=== PATIENT | female | born 1995 | race Caucasian/White ===

== ENCOUNTER 2019-06-30 15:54 | Inpatient (IN) ==
[2019-06-30 17:21] LABS: Urine Bilirubin Negative (NEGATIVE); Urine Blood Negative /ul (NEGATIVE); Urine Ketone Negative (NEGATIVE); Urine Nitrite Negative (NEGATIVE); Urine Protein Negative (NEGATIVE); Urine Urobilinogen Normal (NORMAL)
[2019-06-30 17:31] LABS: Urine Appearance Slightly Cloudy (CLEAR); Urine Bacteria 1+; Urine Color Yellow; Urine RBC 0-5 /hpf (0-5)
[2019-06-30] MEDS ORDERED: RINGER'S SOLUTION,LACTATED 1,000 ML IV PRN (19:02)
[2019-06-30] MEDS ORDERED: ONDANSETRON 4 MG TAB.RAPDIS PO PRN (19:02)
[2019-06-30] MEDS ORDERED: RINGER'S SOLUTION,LACTATED 1,000 ML IV ONE (19:02)
[2019-06-30] MEDS ORDERED: OXYTOCIN/DEXTROSE 5%-WATER 30 UNITS/500 ML BAG IV ONE (19:02)
[2019-06-30] MEDS ORDERED: BUPIVACAINE HCL/0.9 % NACL/PF 250 ML EP PRN (19:05)
[2019-06-30] MEDS ORDERED: ONDANSETRON HCL/PF 2 MG/ML VIAL IV PRN (19:05)
[2019-06-30] MEDS ORDERED: NALOXONE HCL 1 MG/1 ML SYRG IV PRN (19:05)
[2019-06-30] MEDS ORDERED: BUPIVACAINE HCL/PF 30 ML VIAL EP SCH (19:15)
--- NOTE | 2019-06-30 19:52 | ANES ---
Anesthesia Pre Procedure Eval Vitals/Labs: Last Vital Signs Temp 36.5 C 06/30/19 19:51 Pulse 78 06/30/19 19:51 Resp 20 06/30/19 19:51 BP 122/76 06/30/19 19:51 Pulse Ox 100 06/30/19 19:51 HOME MEDICATIONS polyethylene glycol 3350 17 gram/dose oral powder 17 g PO DAILY 03/10/19 [Last Taken Unknown] prenat.vits,ella,ibi-sndj-qxjgm 1 tab PO DAILY 03/10/19 [Last Taken 06/29/19 08:00] valacyclovir 1 gram tablet 1,000 mg PO DAILY #30 tab 06/16/19 [Last Taken 06/29/19 08:00] Allergies/Adverse Reactions: Allergies Allergy/AdvReac Type Severity Reaction Status Date / Time No Known Allergies Allergy Verified 06/28/19 13:59 - Planned Procedure Planned Procedure: LABOR EPIDURAL Medication List Reviewed:: Yes Allergies Verified: Yes Medical History (Last Reviewed 06/30/19 @ 19:52 by Carlos Cochran CRNA) Hyperemesis affecting , antepartum Onset Date: 11/26/18 Splenomegaly Onset Date: ~08/2014 Spontaneous Onset Date: Unknown Surgical History (Last Reviewed 06/30/19 @ 19:52 by Carlos Cochran CRNA) No significant past surgical history Onset Date: 03/10/19 Family History (Last Reviewed 06/30/19 @ 19:52 by Carlos Cochran CRNA) Mother Hx of migraines Hypertension Multiple sclerosis Father Unknown family medical history Grandmother Diabetes - Cardiovascular Tolerate Activity: Good Heart Sounds: S1 & S2, Regular - Anesthesia Assessment and Plan ASA Class: PS, II Anesthesia Type Plan: Epidural
--- NOTE | 2019-06-30 20:13 | ANES ---
Post Anesthesia Assessment - Vital Signs Vitals: Last Vital Signs Temp 36.5 C 06/30/19 19:51 Pulse 85 06/30/19 20:11 Resp 18 06/30/19 20:11 BP 119/61 06/30/19 20:11 Pulse Ox 100 06/30/19 20:11 Airway Patency: Normal - Mental Status Level Of Consciousness: Awake - N/V Assessment Nausea/Vomiting Presence: None Dehydration:: No
--- NOTE | 2019-06-30 20:13 | ANES ---
Anesthesia Procedure Note Procedure Note: ANESTHESIA PROCEDURE NOTE Date of Procedure: 06/30/2019. Time of procedure: 2054. Performed by: Carlos Cochran CRNA Director Of Acquisition Marketing: None. Preprocedure diagnosis: Active labor. Post procedure diagnosis: Same. Procedure: Insertion of labor epidural. Indications: The patient is a 24-year-old female in active labor requesting labor epidural for pain management. Findings: See below. Details of the procedure: The patient was placed in a sitting position. DuraPrep as well as Betadine swabs X3 was applied to the patient's back. Patient was then draped in a sterile fashion. Lidocaine 1% was infiltrated to the skin and subcutaneous tissues at the level of the L3-4 interspace. The epidural space was identified using a 18-gauge Tuohy needle with [id number] technique. Epidural catheter was inserted to a depth of 14 centimeters at skin. Negative test dose was elicited using 3 mL of 1.5% preservative-free lidocaine plus epinephrine 1 200,000. The epidural catheter was then taped and secured in place. A loading dose of 8 mL of 0.25% preservative-free bupivacaine was administered to the epidural catheter after negative aspiration for blood and CSF. EBL: Minimal. Fluids: N/A. Specimen: N/A. Post procedure condition: The patient tolerated the procedure well. No complications were noted. Thank you for this consultation. Carlos Cochran CRNA
[2019-06-30 20:34] LABS: Cocaine Ur Negative (NEGATIVE); Urine Barbiturate Negative (NEGATIVE); Urine Benzodiazepines Negative (NEGATIVE); Urine Opiates Negative (NEGATIVE); Urine PCP Negative (NEGATIVE); Urine THC Negative (NEGATIVE)
--- NOTE | 2019-06-30 23:41 | HP ---
Chief Complaint - Chief Complaint Date of Service: 06/30/19 Time of Service: 23:25 Chief Complaint: contractions History of Present Illness: 24 yo at 37 2/7 weeks presents to L&D complaining of contractions of increasing intensity and frequency since around 1400 today. This complicated by h/o GHTN and h/o spleenomegaly. FOB is HSV carrier but mother tested negative. She is on prophylatic tx during last month of . Rh positive Rubella immune GBS negative Medical History (Last Reviewed 06/30/19 @ 23:29 by Vaughn De La Rosa DO) Hyperemesis affecting , antepartum Onset Date: 11/26/18 Splenomegaly Onset Date: ~08/2014 Spontaneous Onset Date: Unknown Surgical History: Surgical History (Last Reviewed 06/30/19 @ 23:29 by Vaughn De La Rosa DO) No significant past surgical history Onset Date: 03/10/19 Family History: Family History (Last Reviewed 06/30/19 @ 23:29 by Vaughn De La Rosa DO) Mother Hx of migraines Hypertension Multiple sclerosis Father Unknown family medical history Grandmother Diabetes Social History: (Last Reviewed 06/30/19 @ 23:29 by Vaughn De La Rosa DO) Social History: adopted: No Marital status: Single household members: significant other, children number of children: 1 current occupational status: employed, unemployed Highest education level completed: high school graduate Sexually Active: Yes Service: No Tobacco: Smoking Status: Never smoker Alcohol: alcohol intake: never Substance Use: substance use type: does not use Dietary Habits: caffeine: Yes Review Of Systems (GEN) - Review of Systems Generalized/Overall Review: Present: No Symptoms Reported EENTM: Present: No Symptoms Reported Respiratory: Present: No Symptoms Reported Cardiac: Present: No Symptoms Reported Abdominal: Present: Other - contractions Genitourinary: Present: No Symptoms Reported Musculoskeletal: Present: No Symptoms Reported Neurological: Present: No Symptoms Reported Skin: Present: No Symptoms Reported Endocrine: Present: No Symptoms Reported Immunizations: IMMUNIZATION HX Immunizations Up to Date Yes History of Influenza Vaccine Yes Hx Pneumococcal Vaccination No Allergies/Adverse Reactions: Allergies Allergy/AdvReac Type Severity Reaction Status Date / Time No Known Allergies Allergy Verified 06/30/19 22:14 Home Medications: HOME MEDICATIONS polyethylene glycol 3350 17 gram/dose oral powder 17 g PO DAILY 09/19/19 [Last Taken Unknown] valacyclovir 1 gram tablet 1,000 mg PO DAILY #30 tab 06/16/19 [Last Taken 06/29/19 08:00] Vits96/Iron Fum/Folic [ S] 1 tab PO DAILY 06/30/19 [Last Taken 06/29/19] Exam - Exam Vital Signs: Vital Signs - Last Taken Temp 36.5 C 06/30/19 19:51 Pulse 85 06/30/19 20:11 Resp 18 06/30/19 20:11 BP 119/61 06/30/19 20:11 Pulse Ox 100 06/30/19 20:11 Constitutional: Present: Alert, Oriented x3, Cooperative, No distress ENT Exam: Present: hearing grossly normal Neck: Present: non-tender, trachea midline. Absent: thyromegaly Breasts: Present: Exam deferred Respiratory: Present: lungs clear, no respiratory distress Cardiovascular/Chest: Present: regular rate, rhythm Abdomen: Present: soft, nontender, no rebound tenderness, other - gravid /Rectal: Present: Other - cervix 5/60/-2 per nurse on admission Extremity: Present: no pedal edema, no calf tenderness Skin Exam: Present: normal color, warm/dry, no cyanosis Neurologic: Present: alert, normal mood/affect, oriented x 3 Appearance: Present: appropriate appearance, appropriate insight Eye contact: Present: cooperative, good eye contact Thoughts: Present: normal thought pattern Diagnostic Studies: Abnormal Lab Results 06/30/19 Range/Units 17:16 Ur Leukocyte Esterase 100 H (NEGATIVE) /ul Urine WBC 10-25 H (0-5) /hpf Ur Epithelial Cells >25 H (0-5) /hpf Urine Bacteria 1+ H (NONE) Laboratory Results Urine Color Yellow 06/30/19 17:16 Urine Appearance Slightly cloudy (CLEAR) 06/30/19 17:16 Urine pH 7.0 pH (5.0-7.0) 06/30/19 17:16 Ur Specific [place] 1.010 SP.GR. (1.005-1.010) 06/30/19 17:16 Urine Protein Negative mg/dL (NEGATIVE) 06/30/19 17:16 Urine Glucose (UA) Negative mg/dL (NEGATIVE) 06/30/19 17:16 Urine Ketones Negative mg/dL (NEGATIVE) 06/30/19 17:16 Urine Blood Negative /ul (NEGATIVE) 06/30/19 17:16 Urine Nitrate Negative (NEGATIVE) 06/30/19 17:16 Urine Bilirubin Negative mg/dl (NEGATIVE) 06/30/19 17:16 Urine Urobilinogen Normal EU/dl (NORMAL) 06/30/19 17:16 Ur Leukocyte Esterase 100 /ul (NEGATIVE) H 06/30/19 17:16 Urine RBC 0-5 /hpf (0-5) 06/30/19 17:16 Urine WBC 10-25 /hpf (0-5) H 06/30/19 17:16 Ur Epithelial Cells >25 /hpf (0-5) H 06/30/19 17:16 Urine Bacteria 1+ (NONE) H 06/30/19 17:16 Urine Opiates Screen Negative (NEGATIVE) 06/30/19 Unknown Barbiturate Screen Negative (NEGATIVE) 06/30/19 Unknown Ur Phencyclidine Scrn Negative (NEGATIVE) 06/30/19 Unknown Urine Amphetamine Negative (NEGATIVE) 06/30/19 Unknown U Benzodiazepines Scrn Negative (NEGATIVE) 06/30/19 Unknown Urine Cocaine Screen Negative (NEGATIVE) 06/30/19 Unknown Urine Marijuana (THC) Negative (NEGATIVE) 06/30/19 Unknown Assessment/Plan - Assessment/Plan (1) Labor established Assessment: Admit for routine management of labor. Epidural PRN. Pitocin PRN. Problem: Acute Non Stress Test - Status NST: 06/30/19 Weeks Gestation: 37 2/7 Reason for NST: threatened labor Monitor Mode: External Acceleration: Present Decelerations: None Variability: Moderate 6-25 bpm Activity: reactive Reactive: 15 by 15 - Assessment NST Assessment: other - Labor - Plan NST Plan: Admit to L&D
--- NOTE | 2019-06-30 23:43 | PN ---
Progess Note - Interim Date: 06/30/19 Time: 23:41 Narrative: Patient comfortable with epidural Vital signs stable. Pitocin at 2 mu/min. FHT: 120 baseline, reassuring contractions q 2-3 min Cervix: 6-7/60/-2, AROM-clear at 2236 Impression: Intrauterine at 37 2/7 weeks in labor Plan: Continue present plan
--- NOTE | 2019-07-01 01:43 | OR ---
Operative Report - Dictated Report Narrative: Spontaneous vaginal delivery of vigorously crying viable female at 0113 on 07/01/2019 with Apgars 9 and 9, weighing 2695 g in ROSANGELA position. Cord clamping delayed approximately 1 minute Placenta delivered complete, intact, with three vessel cord Estimated blood loss: Less than 50 ml Anesthesia: Epidural Lacerations: None History for MU History for MU Definition: * The number of deliveries resulting in a live the patient experienced prior to current hospitalization * The previous delivery of live twins or any live multiple gestation is considered one live event. *If primagravida or nulliparous is documented select zero for the number of previous live births. Live Events: Live Events: 1
[2019-07-01] MEDS ORDERED: GLYCERIN/WITCH HAZEL LEAF 40 APPL BOX TP PRN (01:50)
[2019-07-01] MEDS ORDERED: BISACODYL 10 MG SUPP.RECT RC PRN (01:50)
[2019-07-01] MEDS ORDERED: oxyCODONE HCL/ACETAMINOPHEN 1 TAB TABLET PO PRN (01:50)
[2019-07-01] MEDS ORDERED: SENNOSIDES 8.6 MG TABLET PO PRN (01:50)
[2019-07-01] MEDS ORDERED: HYDROCORTISONE 30 APPL TUBE TP PRN (01:50)
[2019-07-01] MEDS ORDERED: OXYTOCIN/DEXTROSE 5%-WATER 30 UNITS/500 ML BAG IV ONE (01:50)
[2019-07-01] MEDS ORDERED: BENZOCAINE/MENTHOL 81 SPRAY CAN TP PRN (01:50)
[2019-07-01] MEDS ORDERED: IBUPROFEN 800 MG TABLET PO PRN (01:50)
[2019-07-01 06:57] VITALS: BP 109/67
[2019-07-01] MEDS ORDERED: DOCUSATE SODIUM 100 MG CAPSULE PO SCH (09:00)
[2019-07-01] MEDS ORDERED: POLYETHYLENE GLYCOL 3350 17 GM PACKET PO SCH (09:00)
[2019-07-01] MEDS ORDERED: POLYETHYLENE GLYCOL 3350 119 GM BTL PO SCH (09:00)
[2019-07-01] MEDS ORDERED: PRENATAL VITS96/IRON FUM/FOLIC 1 TAB TABLET PO SCH (09:00)
--- NOTE | 2019-07-01 13:06 | PN ---
Subjective - Date and Time Seen Date: 07/01/19 Time: 13:04 Objective - Vitals Vitals: Last Vital Signs Temp 36.8 C 07/01/19 06:55 Pulse 68 07/01/19 06:55 Resp 18 07/01/19 06:55 BP 109/67 07/01/19 06:55 Pulse Ox 99 07/01/19 06:55 Patient denies complaints. Bottlefeeding. Lochia wnl abdomen - soft, nontender Uterus -firm, at umbilicus - 1 no calf tenderness Impression: day #1 - s/p spontaneous vaginal delivery. Baby transferred to [facility] for RDS. Patient desires early discharge to be with baby. Because of severe weather conditions coming in this week and will discharge now to avoid travel difficulties. Plan: Routine discharge instructions given. Follow-up in the office in 3 weeks. - Abnormal Lab Findings Abnormal Lab Findings: Abnormal Lab Results 06/30/19 Range/Units 17:16 Ur Leukocyte Esterase 100 H (NEGATIVE) /ul Urine WBC 10-25 H (0-5) /hpf Ur Epithelial Cells >25 H (0-5) /hpf Urine Bacteria 1+ H (NONE) Cauti Physician Documentation - Urinary Catheter Management Urethral (Chi) Date of Insertion: 06/30/19 Time of Insertion: 21:00 Assessment/Plan - Problems/Diagnosis (1) Labor established Problem: Acute
== END 2019-07-01 13:29 | disposition home or self-care (01) | DRG 807 ==
LOC: OBCLINIC 15:54 → OB 19:00
PROVIDERS: ADMIT Obstetrics & Gynecology; ATTEND Obstetrics & Gynecology
CPT/HCPCS: 59025; 80307; 81001; 87086; 88307